=== PATIENT | male | born 1970 | race Caucasian/White ===

== ENCOUNTER 2021-01-08 10:26 | Emergency (ER) | payer OTHER ==
[~2021-01-08] VITALS: Ht 182.9 cm; Wt 93.0 kg
[~2021-01-08 10:26] MED LIST: NEURONTIN300 MG PO; VALTREX1000 MG PO
[2021-01-08] MEDS ORDERED: HYDROCODON-ACE1 EA11 PO (12:37)
== END 2021-01-08 13:02 | disposition home or self-care (01) ==
LOC: ED 10:26
DX: S72.431A Displaced fracture of medial condyle of right femur, initial encounter for closed fracture (principal); S83.91XA Sprain of unspecified site of right knee, initial encounter; W22.8XXA Striking against or struck by other objects, initial encounter
CPT/HCPCS: 73560; 99283-25; A9270

== ENCOUNTER 2025-03-24 10:31 | Day surgery (SDC) | payer OTHER ==
[~2025-03-24] VITALS: Ht 185.4 cm; Wt 93.0 kg
[~2025-03-24 10:31] MED LIST changes: +HYDROCODON-ACE1 EA11 PO; +IBLOOD GLUCOSE TEST STRIP 1 EA TEST VI PRN; +LACTATED RINGER'S 1,000 ML IV SCH; +LIDOCAINE HCL 1% 5 ML SDV INJ ONE; +LIPITOR40 MG PO; +TYLENOL325 MG PO
[2025-03-24 10:56] VITALS: BP 141/85
[2025-03-24] MEDS ORDERED: LIDOCAINE HCL 2% 5 ML SDV ONE (11:45)
--- NOTE | 2025-03-24 12:22 | NUR ---
03/24/25 1222 Funmi Cote 1218-PATIENT ARRIVED TO PACU ON 2L NC RR EVEN REACTIVE TO VERBAL STIMULI VERY DROWSY ORIENTED TO PACU DENIES PAIN OR NAUSEA. ABDOMEN SOFT IVF INFUSING. SR HR 70'S.
[2025-03-24 12:58] VITALS: BP 148/89
--- NOTE | 2025-03-26 08:54 | OR ---
[facility] [address] [place], [place] [address] Signed DATE OF OPERATION: 03/24/2025 SURGEON: Adam Donahue DO PREOPERATIVE DIAGNOSIS: Colon cancer screening. POSTOPERATIVE DIAGNOSIS: Colon cancer screening with colon polyp at 90 cm. PROCEDURE PERFORMED: Colonoscopy with cold biopsy forceps, removal and biopsy of polyp at 90 cm. ANESTHESIA: IV sedation. ESTIMATED BLOOD LOSS: None. DRAINS: None. COMPLICATIONS: None. DESCRIPTION OF PROCEDURE: The patient was brought to the GI lab, placed in the supine position. After induction of IV sedation, the patient was placed in left lateral position, padded to the satisfaction of anesthesia. The Olympus video colonoscope was then introduced into the rectum and while insufflating under direct visualization, the scope was advanced through the rectosigmoid, sigmoid colon, descending colon, transverse colon, ascending colon to the cecum. Mucosal evaluation was then performed. The scope was withdrawn. The ascending colon and cecum were essentially unremarkable. No intrinsic or extrinsic masses were noted. At approximately 90 cm distal to the hepatic flexure, a flat broad-based polyp was noted. Cold biopsies forceps were utilized to biopsy the polyp multiple times, passed off the field for pathologic review. Hemostasis was maintained. The scope was then brought back to the remainder of transverse colon. No intrinsic or extrinsic masses were appreciated. Scope was brought back into the descending colon and sigmoid colon. There were no intrinsic or extrinsic masses, lesions or ulceration were noted as well. Electronically Signed By: ADAM DONAHUE DO 03/26/25 0854 PATIENT NAME: TRANG WHITMORE OPERATIVE REPORT DATE OF : 74 REPORT #: [id number] PHYSICIAN: ADAM DONAHUE DO PCP: OLIVIA DIAZ MD REPORT IS CONFIDENTIAL AND NOT TO BE RELEASED WITHOUT AUTHORIZATION [place] [id number] [facility] [place], [place] [address] Signed Rectosigmoid was unremarkable. Scope was withdrawn. The patient tolerated the procedure well and taken to recovery room in satisfactory condition. DO IRASEMA Garrido/KAMARI /[id number] Copies: ~ Electronically Signed By: ADAM DONAHUE DO 03/26/25 0854 PATIENT NAME: TRANG WHITMORE OPERATIVE REPORT DATE OF : 74 REPORT #: [id number] PHYSICIAN: ADAM DONAHUE DO PCP: OLIVIA DIAZ MD REPORT IS CONFIDENTIAL AND NOT TO BE RELEASED WITHOUT AUTHORIZATION
--- NOTE | 2025-03-26 13:13 | PATH ---
[facility] [address] [facility] [place], [place] [address] Signed SPECIMEN(S): A COLON POLYP, 90 CM SPECIMEN SOURCE: A. COLON POLYP, 90 CM CLINICAL HISTORY: Screening/colon polyp FINAL PATHOLOGIC DIAGNOSIS: Colon at 90 cm, polypectomy: - Colonic mucosa with minimal superficial hyperplastic change. DWS:smn MICROSCOPIC EXAMINATION: Histologic sections of all submitted blocks are examined by light microscopy. These findings, together with the gross examination, support the pathologic diagnosis. GROSS DESCRIPTION: The specimen, labeled and designated "Naeem Winston colon polyp, 90 cm," is received in formalin and consists of one hines soft tissue fragment, 0.3 cm. Entirely submitted in (A1). VB (under the direct supervision of a pathologist) The Gross Description was prepared using a voice recognition system. The report was reviewed for accuracy; however, sound-alike word errors, addition and/or deletions may occur. If there is any question about this report, please contact Client Services. PERFORMING LABORATORY: Technical component was performed by [facility], [address] [place] [id number] (CLIA# [id number]). Professional interpretation was performed by [facility], [address] [place] [id number] (CLIA#: [id number]). Diagnostician: Josr Jeffery MD Pathologist Electronically Signed 03/26/2025 Copies: PATIENT NAME: TRANG WHITMORE PATHOLOGY DATE OF : 74 REPORT #: [id number] PHYSICIAN: DIANE PATHOLOGY PCP: OLIVIA DIAZ MD REPORT IS CONFIDENTIAL AND NOT TO BE RELEASED WITHOUT AUTHORIZATION [address] [address] Signed ~ PATIENT NAME: TRANG WHITMORE ANDREW PATHOLOGY DATE OF : 74 REPORT #: [id number] PHYSICIAN: DIANE PATHOLOGY PCP: OLIVIA DIAZ MD REPORT IS CONFIDENTIAL AND NOT TO BE RELEASED WITHOUT AUTHORIZATION
== END 2025-03-24 13:05 | disposition home or self-care (01) ==
LOC: DS 10:31
PROVIDERS: ATTEND Surgery
PROC: 0DBL8ZX Excision of Transverse Colon, Via Natural or Artificial Opening Endoscopic, Diagnostic (ICD-10-PCS; principal; 2025-03-24 12:15)
DX: K63.5 Polyp of colon (principal); K59.00 Constipation, unspecified
CPT/HCPCS: 00812; J2003; J2704; J7121